=== PATIENT | male | born 1970 | race Hispanic/Latino ===

== ENCOUNTER 2018-10-28 13:45 | Emergency (ER) | payer BC, OTHER ==
--- NOTE | 2018-10-28 16:16 | CON ---
DATE OF CONSULTATION: 10/28/2018 REASON FOR CONSULTATION: MT. HISTORY OF PRESENT ILLNESS: Mr. Christy is a 48-year-old gentleman with previous history of renal transplant and hypertension, who re-presented to the outlying facility with chest pressure and nausea. He was found to have ST-segment elevation MT. Instead of the patient being transferred to [place], he was transferred to [facility]. He could not be flown due to weather. Dr. Rosa did discuss with the ER physician at the time to proceed with thrombolytics versus heparin and aspirin. I was not involved in the conversation and was not aware until after the patient arrived. PAST MEDICAL HISTORY: As above. ALLERGIES: NONE. MEDICATIONS: Unknown. PHYSICAL EXAMINATION: GENERAL: Patient is a pleasant male who is in no acute distress. The patient appears their stated age. He is currently pain free. VITAL SIGNS: Blood pressure 110/70, pulse 80, and respirations 20. NEUROLOGIC: The patient is alert and oriented x3 with no focal neurologic deficits. HEENT: Sclerae without icterus. Mouth has moist mucous membranes with normal pallor. NECK: No JVD. Carotid upstroke brisk. No bruits bilaterally. LUNGS: Clear to auscultation with unlabored respirations. BACK: No scoliosis or kyphosis. CARDIAC: Regular rate and rhythm with normal S1 and S2. No S3 or S4 noted. No significant rubs, murmurs, thrills, or gallops noted throughout the precordium. PMI is not displaced. There is no parasternal heave. ABDOMEN: Soft, nontender, nondistended. No peritoneal signs present. No hepatosplenomegaly. No abnormal striae. EXTREMITIES: 2+ femoral and 2+ dorsalis pedis pulses. No cyanosis, clubbing, or edema. SKIN: No gross abnormalities. PERTINENT LABORATORY DATA: Pending. DIAGNOSTIC DATA: EKG showed normal sinus rhythm and ST segment elevation noted inferiorly, which appears to be improved from previous ECG. IMPRESSION: Acute myocardial infarction. RECOMMENDATIONS: The patient was brought straight to the outside laborer through the ER. After starting to discuss the procedure with Mr. Christy, he states due to his renal transplant, he is very reluctant to proceed with coronary angiography and did not want a risk damage to his kidney. I did state I did not know the baseline of creatinine, but did state that if he were suffering heart damage currently that it could be detrimental and even causing . I have also talked to his , who was brought to the outside laborer to discuss the above. After much discussion, Mr. Christy opted to not proceed with coronary angiography, knowing the risk of heart damage and . He would like to discuss further with his sister, , and sanding machine operator. I did state his sanding machine operator was not available. I am unsure where his sanding machine operator was located. The patient was then taken back to the ER. I have asked the ER to try and get a hold of his sister and sanding machine operator. I am pleased that he is pain-free with PVCs on EKG, likely representing reperfusion changes. The patient does currently appear stable. I would recommend heparin plus Plavix. Otherwise, I have no further recommendations. ADDENDUM: With Mr. Christy on the emergency room, his sister did arrive. He is currently chest pain free. He has opted to proceed with transfer. He would like to have his further care received at [facility] in [place] or in [place]. Emergency room is currently in the process of making the transfer. Again, he is currently chest pain free. I did state that we could proceed with angiography here, but he does not feel comfortable proceeding and not willing to give consent. We will give him Plavix and continue heparin. Job ID: [id number]
[2018-10-28 16:23] LABS: #Monocytes 0.2 thou/uL (0.11-0.59); #Neutrophils 9.1 thou/uL (1.40-6.50); %Basophils 0.2 % (0.0-1.0); %Eosinophils 0.4 % (0.0-10.0); %Lymphocytes 9.5 % (21.0-51.0); %Monocytes 2.3 % (0.0-10.0); %Neutrophils 87.6 % (42.0-75.0); Hemoglobin 12.7 g/dL (14.0-18.0); Mean Corpuscular HGB CONC 34.7 g/dL (32.0-36.0); Mean Corpuscular Hemoglobin 31.2 pg (27.0-31.0); Mean Corpuscular Volume 90.1 fL (78.0-98.0); Mean Platelet Volume 7.3 fL (7.4-10.4); Platelet Count 191 thou/uL (130-400); RBC Distribution Width 12.3 % (11.5-14.5); Red Blood Cell (RBC) Count 4.05 mill/uL (4.70-6.10); White Blood Cell (WBC) Count 10.4 thou/uL (4.8-10.8)
[2018-10-28] MEDS ORDERED: Clopidogrel Bisulfate 75 MG TAB ONE (16:44)
[2018-10-28] MEDS ORDERED: Clopidogrel Bisulfate 300 MG TAB PO SCH (17:00)
[2018-10-28] MEDS ORDERED: Clopidogrel Bisulfate 75 MG TAB PO SCH (17:00)
[2018-10-28 17:08] LABS: ALT (SGPT) 31 U/L (8-55); AST (SGOT) 57 U/L (5-34); Albumin 3.9 g/dL (3.5-5.0); Alkaline Phosphatase 96 U/L (40-150); Anion Gap 15 mmol/L (10-20); BUN (Urea Nitrogen) 19 mg/dL (8.9-20.6); Bilirubin, Total 0.4 mg/dL (0.2-1.2); Calc. Creatinine Clearance 0 mL/min (70-130); Carbon Dioxide 17 mmol/L (22-29); Chloride 112 mmol/L (98-107); Estimated GFR-MDRD 57; Globulin 2.6 g/dL (2.4-3.5); Glucose 95 mg/dL (70-105); Protein, Total 6.5 g/dL (6.0-8.3); Sodium 139 mmol/L (136-145)
[2018-10-28 17:15] LABS: CKMB 29.9 ng/mL (0-6.6)
--- NOTE | 2018-10-28 17:21 | RAD ---
FRadiograph chest one view: HISTORY: chest pain FINDINGS: The visualized lung akhtar are clear. The cardiomediastinal silhouette is normal. No pneumothorax. IMPRESSION: No acute cardiopulmonary findings.
== END 2018-10-28 17:27 | disposition short-term general hospital (02) ==
LOC: ERS 13:45 → SDC 13:50 → ERS 17:27
DX: I21.3 ST elevation (STEMI) myocardial infarction of unspecified site (principal); M10.9 Gout, unspecified; I12.0 Hypertensive chronic kidney disease with stage 5 chronic kidney disease or end stage renal disease; D63.1 Anemia in chronic kidney disease; N18.6 End stage renal disease; Z79.899 Other long term (current) drug therapy
CPT/HCPCS: 71045; 80053; 82553; 84484; 85025; 93005; 96365; 96366